=== PATIENT | female | born 1960 | race African-American/Black ===

== ENCOUNTER 2023-12-22 11:06 | Outpatient (CLI) | payer MEDICARE, MEDICAID | END 2023-12-22 11:07 | disposition home or self-care (01) | LOC: CSHMAMMO 11:06 | PROVIDERS: ATTEND Family Medicine | DX: Z13.820 Encounter for screening for osteoporosis (principal); Z78.0 Asymptomatic menopausal state | CPT/HCPCS: 77080 ==